=== PATIENT | male | born 1995 | race Asian ===

== ENCOUNTER 2016-07-07 13:04 | Emergency (ER) | payer OTHER ==
[~2016-07-07] VITALS: Ht 170.2 cm; Wt 73.0 kg
[2016-07-07 13:09] VITALS: Ht 170.2 cm; Wt 73.0 kg
--- NOTE | 2016-07-07 14:07 | DIAGNOSTIC IMAGING REPORT ---
LEFT KNEE 3 VIEWS CLINICAL HISTORY: Left knee pain and injury. FINDINGS: AP, lateral, and sunrise views of the left knee are obtained. No prior studies are available for comparison at the time of dictation. The skeletal structures are well mineralized. No fracture is seen. The joint spaces of the knee are preserved. There is no large joint effusion. Soft tissue swelling is present around the knee. IMPRESSION: Soft tissue swelling with no fracture identified. Electronically signed by: Omkar Balbuena M.D. 07/07/2016 2:05 PM Dictated Date/Time: 07/07/2016 2:04 PM
[2016-07-07] MEDS ORDERED: MoRPHine SULFATE 4 MG/ML 1 ML CARP\\VIAL IM STA (14:29)
[2016-07-07] MEDS ORDERED: KETOROLAC TROMETHAMINE 60 MG/2 ML VIAL IM STA (14:29)
[2016-07-07] MEDS ORDERED: OXYCODONE IR HOME PACK PO ONE (14:30)
[2016-07-07 15:01] VITALS: BP 116/62; PULSE 93; TEMP 36.6; O2SAT 93
--- NOTE | 2016-07-07 21:00 | EMERGENCY ROOM VISIT NOTE ---
History First contact with patient: 13:38 Chief Complaint: KNEEPAIN Stated Complaint: LEFT KNEE PAIN History of Present Illness The patient is a 21 year old male who presents to the Emergency Room with complaints of left knee pain and inability to fully straighten his knee. The patient reports that his symptoms developed while sleeping this morning. When he got up, he was unable to bear weight or extend the knee. The patient denies any recent trauma. He has noticed some popping and clicking sensation in his knee for the past few weeks. 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 He denies any pain extending into the calf or ankle, and denies any back pain. He rates his discomfort a 6 out of 10. Review of Systems 10 system review was performed and was negative except for pertinent positives and negatives as indicated in history of present illness Past Medical/Surgical History Medical Problems: (1) No significant past medical history Surgical Problems: (1) No history of previous surgery Family History Unremarkable Social History Smoking Status: Never Smoker Alcohol Use: none Marital Status: single Occupation Status: [employer] Current/Historical Medications No Active Prescriptions or Reported Meds Allergies Coded Allergies: No Known Allergies (Unverified , 07/07/16) Physical Exam Vital Signs Date Time Temp Pulse Resp B/P Pulse Ox O2 Delivery O2 Flow Rate FiO2 07/07/16 15:01 36.6 93 18 116/62 93 07/07/16 13:09 36.6 93 18 116/62 93 Room Air Physical Exam CONSTITUTIONAL: Healthy and well nourished. Alert and oriented X 3 with positive affect. HEENT: Normocephalic, atraumatic. Pupils equal, round and reactive. NECK: Full active range of motion without discomfort. MUSCULOSKELETAL: Examination of the left knee shows an aged area of ecchymosis over the anteromedial knee. The patient has generalized tenderness to palpation along the medial joint line. Collateral ligament sore intact. I am unable to extend the knee without significant patient discomfort. Anterior cruciate ligament/PCL ligaments exam appears to be intact. No popliteal masses or obvious joint effusion. No tenderness to palpation of the proximal fibula. He is mild a tender over the patella. No focal tenderness over the quadriceps or patellar tendons. He is able to straight leg raise. INTEGUMENTARY: No rash or other significant dermatologic conditions noted. NEUROLOGIC: No focal neurologic deficits noted. Medical Decision & Procedures ER Provider Diagnostic Interpretation: My interpretation of left knee x-rays does not show any obvious fractures, patellar subluxation or joint effusion. Radiologist report is as follows: LEFT KNEE 3 VIEWS CLINICAL HISTORY: Left knee pain and injury. FINDINGS: AP, lateral, and sunrise views of the left knee are obtained. No prior studies are available for comparison at the time of dictation. The skeletal structures are well mineralized. No fracture is seen. The joint spaces of the knee are preserved. There is no large joint effusion. Soft tissue swelling is present around the knee. IMPRESSION: Soft tissue swelling with no fracture identified. Medications Administered Medications (Trade) Dose Ordered Sig/Joey Route Start Time Stop Time Status Last Admin Dose Admin Ketorolac Tromethamine (Toradol Inj) 60 mg NOW STAT IM 07/07/16 14:29 07/07/16 14:30 DC 07/07/16 15:00 60 MG Morphine Sulfate (MoRPHine SULFATE INJ) 4 mg ONE STAT IM 07/07/16 14:29 07/07/16 14:30 DC 07/07/16 14:59 4 MG Oxycodone HCl (Roxicodone Immediate Rel 5MG Home Pack) 1 homepack UD ONCE PO 07/07/16 14:30 07/07/16 14:31 DC 07/07/16 15:00 1 HOMEPACK ED Course Patient history and physical exam were performed. Nurse's notes were reviewed. X-rays were reviewed and normal. The patient was administered Toradol and morphine IM because of significant pain. The patient was provided a prescription for OxyIR, and encouraged to alternate ibuprofen and Tylenol for baseline pain relief. Crutches were dispensed, along with an ice pack. He was instructed to follow-up with [facility] for further reevaluation and management. The patient was happy with plan of care, voiced understanding of all discharge instructions, and rated his pain a 4 out of 10 at the time of discharge. Medical Decision With the patient unable to extend his knee, I question the possibility of mechanical impingement of the knee. He does not have any joint effusion. He does have age to ecchymosis of the knee. His ligament is exam does appear to be grossly intact. Impression Primary Impression: Left knee pain Departure Information Prescriptions No Active Prescriptions or Reported Meds Referrals [facility] (PCP) Patient Instructions My [facility] Problem Qualifiers Primary Impression: Left knee pain Chronicity: acute Qualified Codes: M25.562 - Pain in left knee
== END 2016-07-07 15:02 | disposition home or self-care (01) ==
LOC: C.EDB 13:06 → C.EDD 15:02
DX: M25.562 Pain in left knee (principal)